=== PATIENT | female | born 1990 | race Caucasian/White ===

== ENCOUNTER 2018-04-16 21:05 | Inpatient (IN) | payer MEDICAID ==
[~2018-04-16] VITALS: Ht 170.2 cm; Wt 128.4 kg
--- NOTE | ~2018-04-16 | DS ---
PATIENT:LUZ MARIA HARRIS :89 MEDICAL RECORD: [id number] DISCHARGE SUMMARY ADMISSION DATE: 04/16/18 DISCHARGE DATE: 04/18/18 DATE OF ADMISSION: 04/16/2018 DATE OF DISCHARGE: 04/18/2018 ADMISSION DIAGNOSES: at 38 weeks and 6 days, desires delivery. DISCHARGE DIAGNOSES: at 39 weeks and 1 day, without delivery. ATTENDING: Raine Mack MD PROCEDURE: Failed induction. HISTORY OF PRESENT ILLNESS: See the H&P in the chart. SUMMARY OF HOSPITALIZATION: The patient presents for elective delivery at 38 weeks and 6 days. Induction was not started until midnight in which she turned 39 weeks and 0 days. The patient received misoprostol and Pitocin. On hospital day #2, the patient still had not dilated and the is still ballotable. After discussion with the patient and review of strip, it is felt prudent to discontinue the elective induction and have her present at a later gestational time. The patient understands the risks of continuing the induction with an unfavorable cervix. There is no medical indication at this time for delivery. The patient will be discharged home with third trimester obstetrical precautions. We have scheduled the date for her to return to the labor unit within the next 5 days. At the time of discharge, the heart tracing is reassuring with reactivity and no decelerations, with a few contractions are noted. Her cervix remains closed and out of pelvis. TRANSINT:[id number] Voice Confirmation ID: [id number] DOCUMENT ID: [id number] RAINE MACK MD at 1507 CC: [id number] DICTATION DATE: 04/18/18813 CHIEF RADIATION THERAPIST: 04/19/18 0215 DIS IN 04/18/18 [facility] [address] [id number]
[2018-04-16 22:28] LABS: HEMATOCRIT 33.7 % (36.0-48.0); HEMOGLOBIN 11.3 g/dL (12-16); MCH 29.3 pg (26.0-34.0); MCHC 33.5 g/dL (31.0-37.0); MCV 87.3 fL (80.0-100.0); MEAN PLATELET VOLUME 11.2 fL (7.4-10.4); RBC 3.86 10x6/uL (4.00-5.40); RDW 15.5 % (11.5-14.5); WBC 14.5 10x3/uL (4.8-10.8)
[2018-04-16 22:29] LABS: APPEARANCE CLEAR (CLEAR); BILIRUBIN NEGATIVE (NEGATIVE); COLOR YELLOW (YELLOW); GLUCOSE NEGATIVE (NEGATIVE); KETONE NEGATIVE (NEGATIVE); NITRITE NEGATIVE (NEGATIVE); PROTEIN NEGATIVE (NEGATIVE); UROBILINOGEN NORMAL (NORMAL)
[2018-04-16] MEDS ORDERED: FERROUS SULFAT325 MG PO (22:34)
[2018-04-16] MEDS ORDERED: PRENAVITE1 TAB PO (22:34)
[2018-04-16 22:35] VITALS: BP 119/77; Ht 170.2 cm; Wt 128.4 kg
[2018-04-18 08:26] LABS: RAPID PLASMA REAGIN Non Reactive (Non Reactive)
== END 2018-04-18 08:00 | disposition home or self-care (01) | DRG 833 ==
LOC: D.LDO 21:05 → EDBD 21:07 → D.LD 21:07
PROVIDERS: Obstetrics & Gynecology
DX: O98.713 Human immunodeficiency virus [HIV] disease complicating pregnancy, third trimester (principal); O61.0 Failed medical induction of labor; Z3A.39 39 weeks gestation of pregnancy

== ENCOUNTER 2018-04-22 21:38 | Inpatient (IN) | payer MEDICAID ==
[~2018-04-22] VITALS: Ht 170.2 cm; Wt 128.4 kg
--- NOTE | ~2018-04-22 | DS ---
PATIENT:LUZ MARIA HARRIS :89 MEDICAL RECORD: [id number] DISCHARGE SUMMARY ADMISSION DATE: 04/22/18 DISCHARGE DATE: 04/25/18 DATE OF ADMISSION: 04/22/2018 DATE OF DISCHARGE: 04/25/2018 ADMISSION DIAGNOSIS: at 39 weeks' gestation. DISCHARGE DIAGNOSIS: Mother delivered at 39 weeks' gestation. PROCEDURE PERFORMED: Induction of labor with vaginal delivery. ATTENDING: Dr. Raine Mack HISTORY OF PRESENT ILLNESS AND INDICATIONS FOR HOSPITALIZATION: See the H&P in the chart. SUMMARY OF HOSPITALIZATION: The patient was admitted after the 39th week and began induction of labor on the . The patient failed to go into labor on the following day and induction was held over until late that evening. On the evening of the , the patient again received misoprostol and Pitocin the following morning. The patient went on to deliver vaginally with vacuum assist. At the time of discharge, she reports dagjesi-zq-raetwbgz lochia with adequate pain control using standard hohw-tna-quhalpy preparations. The patient will be discharged home with standard precautions and contraception counseling has been given. Follow up in 6 weeks. TRANSINT:[id number] Voice Confirmation ID: [id number] DOCUMENT ID: [id number] RAINE MACK MD at 0911 CC: [id number] DICTATION DATE: 04/25/18 1214 PAD MACHINE FEEDER: 04/26/18 0414 DIS IN 04/25/18 [id number] [place] [address]
--- NOTE | ~2018-04-22 | OP ---
PATIENT NAME: LUZ MARIA HARRIS MEDICAL RECORD: [id number] :89 LOCATION:[id number] ADMISSION DATE:04/22/18 SURGEON: TRENT ADAMES MD DATE OF OPERATION: 04/24/2018 PREDELIVERY DIAGNOSIS: at 40.0 weeks' gestation. POSTDELIVERY DIAGNOSIS: Mother delivered at term. PROCEDURE: Induction of labor with vaginal delivery. ATTENDING: Trent Adames MD ANESTHETIC: None. FINDINGS: Viable male infant, ARELIS presentation, Apgars 9 and 9. Weight of the is 8 pounds 8 ounces. Placenta spontaneous and intact. Of note, a nuchal cord was present at the time of delivery. EBL: 350 cc. DISPOSITION: Mother and are recovered in the room. TRANSINT:[id number] Voice Confirmation ID: [id number] DOCUMENT ID: [id number] TRENT ADAMES MD at 1211 CC: [id number] DICTATION DATE: 04/24/18 1245 MAST MAKER: 04/24/18 1317 ADM IN [facility] [address] [place] [address]
[~2018-04-22 21:38] MED LIST: FERROUS SULFAT325 MG PO; PRENAVITE1 TAB PO
[2018-04-22 22:03] VITALS: BP 121/76; Ht 170.2 cm; Wt 128.4 kg
[2018-04-22 22:46] LABS: HEMATOCRIT 34.5 % (36.0-48.0); HEMOGLOBIN 11.3 g/dL (12-16); MCH 28.7 pg (26.0-34.0); MCHC 32.8 g/dL (31.0-37.0); MCV 87.6 fL (80.0-100.0); MEAN PLATELET VOLUME 11.2 fL (7.4-10.4); RBC 3.94 10x6/uL (4.00-5.40); RDW 15.5 % (11.5-14.5)
[2018-04-22 23:01] LABS: APPEARANCE CLEAR (CLEAR); BILIRUBIN NEGATIVE (NEGATIVE); COLOR YELLOW (YELLOW); GLUCOSE NEGATIVE (NEGATIVE); KETONE NEGATIVE (NEGATIVE); NITRITE NEGATIVE (NEGATIVE); PROTEIN NEGATIVE (NEGATIVE); SPECIFIC GRAVITY 1.015 (1.005-1.020); UROBILINOGEN NORMAL (NORMAL)
[2018-04-24 06:14] LABS: RAPID PLASMA REAGIN Non Reactive (Non Reactive)
[2018-04-24 19:15] VITALS: BP 110/80
[2018-04-25 07:15] VITALS: BP 132/94
[2018-04-25 08:37] LABS: HEMATOCRIT 30.9 % (36.0-48.0); HEMOGLOBIN 10.2 g/dL (12-16); MCH 28.7 pg (26.0-34.0); MEAN PLATELET VOLUME 10.6 fL (7.4-10.4); RBC 3.55 10x6/uL (4.00-5.40); RDW 15.3 % (11.5-14.5)
== END 2018-04-25 14:31 | disposition home or self-care (01) | DRG 806 ==
LOC: D.LD 21:38
PROVIDERS: Obstetrics & Gynecology
PROC: 10D07Z6 Extraction of Products of Conception, Vacuum, Via Natural or Artificial Opening (ICD-10-PCS; principal; 2018-04-24)
PROC: 10907ZC Drainage of Amniotic Fluid, Therapeutic from Products of Conception, Via Natural or Artificial Opening (ICD-10-PCS; 2018-04-24)
PROC: 3E033VJ Introduction of Other Hormone into Peripheral Vein, Percutaneous Approach (ICD-10-PCS; 2018-04-24)
DX: O99.214 Obesity complicating childbirth (principal); O98.72 Human immunodeficiency virus [HIV] disease complicating childbirth; Z37.0 Single live birth; Z3A.40 40 weeks gestation of pregnancy; Z21 Asymptomatic human immunodeficiency virus [HIV] infection status

== ENCOUNTER 2018-07-02 07:20 | Day surgery (SDC) | payer MEDICAID ==
[2018-06-29 11:25] LABS: BASOPHILS 0.4 % (0-2); EOSINOPHILS 5.1 % (0-7); HEMATOCRIT 39.2 % (36.0-48.0); IMMATURE GRANULOCYTES 0.3 % (0-5); LYMPHOCYTES 27.8 % (15-50); MCH 29.3 pg (26.0-34.0); MCHC 33.2 g/dL (31.0-37.0); MCV 88.5 fL (80.0-100.0); MEAN PLATELET VOLUME 9.9 fL (7.4-10.4); MONOCYTES 8.7 % (2-11); NEUTROPHILS 57.7 % (40-80); RBC 4.43 10x6/uL (4.00-5.40); RDW 14.5 % (11.5-14.5); WBC 11.1 10x3/uL (4.8-10.8)
[2018-06-29 11:41] LABS: PLATELET COUNT 295 10x3/uL (130-400)
[~2018-07-02] VITALS: Ht 1465.6 cm; Wt 120.2 kg
--- NOTE | ~2018-07-02 | OP ---
PATIENT NAME: LUZ MARIA HARRIS MEDICAL RECORD: [id number] :89 LOCATION:D[facility] ADMISSION DATE: SURGEON: RAINE MACK MD DATE OF OPERATION: 07/02/2018 PREOPERATIVE DIAGNOSIS: Unwanted fertility. POSTOPERATIVE DIAGNOSIS: Unwanted fertility. PROCEDURES: 1. Diagnostic laparoscopy. 2. Bilateral tubal occlusion. SURGEON: Raine Mack MD ANESTHESIOLOGIST: Dr. Walden. ANESTHETIC: General. FINDINGS: Unremarkable tubes, uterus and ovaries. What was visualized of the abdominal anatomy was also unremarkable. SPECIMENS REMOVED: None applicable. PATHOLOGY: None applicable. ESTIMATED BLOOD LOSS: Minimal. FLUIDS: 800 cc of lactated Ringer's. URINE OUTPUT: Quantity sufficient void prior to this procedure. COMPLICATIONS: None. DRAINS: None. INDICATIONS: The patient is a 28-year-old multiparous female with undesired fertility. The patient desires sterilization. Risks, benefits as well as limitations of this procedure have been discussed at length. The patient was also aware of the increased possibility of an ectopic gestation, which could be life threatening if not treated properly. DESCRIPTION OF PROCEDURE: After informed consent was assured, the patient was taken to the operating room where anesthetic is obtained. The patient is prepped and draped in the usual sterile fashion. An incision was made in the umbilicus to accommodate a 5-mm trocar, which was inserted without difficulty and pneumoperitoneum developed. The patient is now placed in Trendelenburg position. An 8 mm accessory port was placed 2 fingerbreadths above the symphysis in the midline. Through this port, a blunt probe was inserted and the bowel swept free of the pelvis. Both tubes were inspected. The cul-de-sac as well as ovarian fossae were also inspected. Falope ring applicator was now inserted and loaded with a single ring. This ring was applied to the right tube at the isthmic portion. Good blanching with the crease is noted. The applicator was removed and a second ring placed on the applicator and then applied to the left tube in similar fashion. Marcaine was placed over both OPERATIVE REPORT [id number] LUZ MARIA HARRIS occlusion sites. Pneumoperitoneum is released as the accessory trocars were removed. The primary trocar was now removed after release of the pneumoperitoneum. Subcuticular stitch was applied to the incision sites. Dermabond cover the incisions. Sponge, lap, needle counts were correct times 2. The patient was awakened and went to the recovery area in stable condition. TRANSINT:[id number] Voice Confirmation ID: [id number] DOCUMENT ID: [id number] RAINE MACK MD CC: [id number] DICTATION DATE: 07/19/18740 GUN FITTER: 07/19/1840 [facility] 07/02/18 [address] [id number]
[2018-07-02 07:59] VITALS: BP 133/91; Ht 1465.6 cm; Wt 120.2 kg
--- NOTE | 2018-07-02 11:49 | NUR ---
DC INSTRUCTIONS GIVEN TO PT/FAMILY. STATE UNDERSTANDING. DC'D IV CATH FULLY INTACT.
--- NOTE | 2018-07-02 11:50 | NUR ---
PT STATES PAIN HAS DECREASED FROM 11/14 TO 5
--- NOTE | 2018-07-02 11:56 | NUR ---
PT LEFT UNIT VIA WC AT 1155
[2018-07-02 12:31] LABS: HCG URINE NEGATIVE (NEGATIVE)
== END 2018-07-02 11:55 | disposition home or self-care (01) ==
LOC: D.OPS 07:20 → D.PAN 09:15 → D.OPS 11:55
PROVIDERS: ATTEND Obstetrics & Gynecology
DX: Z30.2 Encounter for sterilization (principal)

== ENCOUNTER 2019-01-08 11:37 | Emergency (ER) | payer MEDICAID ==
[~2019-01-08] VITALS: Ht 170.2 cm; Wt 113.6 kg
[2019-01-08 11:42] VITALS: Ht 170.2 cm; Wt 113.6 kg
[2019-01-08] MEDS ORDERED: VOLTAREN75 MG PO (13:19)
[2019-01-08 14:25] VITALS: BP 134/86
== END 2019-01-08 14:26 | disposition home or self-care (01) ==
LOC: D.ER 11:37
DX: M25.572 Pain in left ankle and joints of left foot (principal); M76.62 Achilles tendinitis, left leg